=== PATIENT | female | born 1985 | race Caucasian/White ===

== ENCOUNTER 2017-05-03 20:58 | Emergency (ER) | payer BC, MEDICAID ==
[~2017-05-03] VITALS: Ht 160 cm; Wt 58.0 kg
[~2017-05-03 20:58] MED LIST: HYDR-3498 PO; IBUP-1542 PO; MECL-77 PO; ONDA4TAB8 PO; TRAM50TA2 PO
[2017-05-03 21:03] VITALS: Ht 160 cm; Wt 58.0 kg
[2017-05-03] MEDS ORDERED: IBUP400T22 PO (22:19)
--- NOTE | 2017-05-03 22:37 | ERA ---
ER Documentation Chief Complaint Date/Time DATE: 05/03/17 TIME: 22:30 Chief Complaint headache, chest pain since 4 hours ago HPI 32-year-old female presents with a chief complaint of chest pain and left arm numbness. Patient denies fever, cough, diaphoresis, abdominal pain, nausea, sexual activity, shortness of breath, dyspnea on exertion or trauma. Patient has no personal or family medical history. Patient is currently on no medications and denies smoking, alcohol and recreational drug use. Patient's chest pain originally occurred when she was driving in her car. Denies pain related to exertion. Denies history of anxiety or change in ROS All systems reviewed and are negative except as per history of present illness. Medications Home Meds Active Scripts Ibuprofen* (Motrin*) 400 Mg Tab, 400 MG PO Q6H Y for PAIN AND OR ELEVATED TEMP, #30 TAB Prov:ISAK SHELDON PA-C 05/03/17 Meclizine Hcl* (Meclizine Hcl*) 25 Mg Tablet, 25 MG PO Q8H Y for DIZZINESS, #14 TAB Prov:RENEA MICHELLE PA-C 04/17/16 Ondansetron Hcl* (Zofran*) 4 Mg Tablet, 4 MG PO Q6H Y for NAUSEA AND OR VOMITING , #20 TAB Prov:RENEA MICHELLE PA-C 04/17/16 Ibuprofen* (Motrin*) 600 Mg Tab, 600 MG PO Q6, #30 TAB Prov:RENEA MICHELLE PA-C 04/17/16 Tramadol HCl (Tramadol HCl) 50 Mg Tablet, 50 MG PO Q4 Y for PAIN, #20 TAB Prov:BEAN MADRID NP 03/20/16 Ibuprofen* (Motrin*) 600 Mg Tab, 600 MG PO Q6H Y for PAIN AND OR ELEVATED TEMP, #20 Prov:HAN GARCÍA MD 10/16/15 Ondansetron Hcl* (Zofran*) 4 Mg Tablet, 4 MG PO Q6H for NAUSEA AND/OR VOMITING, #14 TAB Prov:HAN GARCÍA MD 10/16/15 Hydrocodone Bit-Acetaminophen* ([place]*) 5-325 Mg Tab, 1 TAB PO Q6 Y for PAIN, # 12 TAB Prov:HAN GARCÍA MD 10/16/15 Allergies Allergies: Coded Allergies: No Known Drug Allergy (Verified Allergy, Mild, 10/16/15) PMhx/Soc History of Surgery: Yes ( x1) Anesthesia Reaction: No Hx Neurological Disorder: No Hx Respiratory Disorders: No Hx Cardiac Disorders: No Hx Psychiatric Problems: No Hx Miscellaneous Medical Probl: No Hx Alcohol Use: No Hx Substance Use: No Hx Tobacco Use: No Smoking Status: Never smoker Physical Exam Vitals Vital Signs Date Time Temp Pulse Resp B/P Pulse Ox O2 Delivery O2 Flow Rate FiO2 05/03/17 21:03 97.7 73 20 153/90 96 Physical Exam Const: Otherwise well-appearing 32-year-old female presenting with boyfriend. Head: Atraumatic Eyes: Normal Conjunctiva ENT: Normal External Ears, Nose and Mouth. Neck: Full range of motion..~ No meningismus. Resp: Clear to auscultation bilaterally Cardio: Regular rate and rhythm, no murmurs. No murmurs with Valsalva or hand director rehabilitation program. Abd: Soft, non tender, non distended. Normal bowel sounds. No suprapubic tenderness. Skin: No petechiae or rashes Back: No midline or flank tenderness Ext: No cyanosis, or edema Neur: Awake and alert Psych: Normal Mood and Affect Procedures/MDM The patient was evaluated and worked up for atypical chest pain as described in the history and physical exam. Patient currently does not have any symptoms and denies any chest pain at this time. The workup included an EKG which was read by my attending physician Dr. Barker who read the EKG is unremarkable. EKG has normal sinus rhythm, no ST abnormalities, good baseline and no T-wave changes. The current most likely diagnosis is atypical chest pain versus costochondritis. This treatment plan will thus include ibuprofen for symptomatic relief and recommendation for outpatient follow-up with primary care provider for further evaluation and possible referral to specialist pe. JEOVANNY score was < 3. Well's criteria less than 3. At this time I do not suspect the chest pain to be due to an acute coronary syndrome, pericarditis, aortic dissection, pulmonary embolism, pneumothorax, esophageal tear/rupture, pneumonia or pancreatitis. I have spoke with the patient regarding their condition and future management. They have verbally responded that they understand their status and treatment plan. The patients vitals are stable, and their current condition is appropriate for discharge. The patient will be given discharge instructions with return precautions. Departure Diagnosis: Primary Impression: Atypical chest pain Additional Impression: Costochondritis, acute Condition: Stable Patient Instructions: Costochondritis Additional Instructions: Follow up with your PCP within the next 1-3 days for a more thorough evaluation and a possible referral to a specialist. Return the the emergency department immediately if symptoms worsen or change. If you have any questions regarding medications, ask your pharmacist or us before you leave. If any adverse reactions occur while taking your medications, discontinue the treatment and return to the emergency department immediately. Take your medications as directed, and complete the entire course of treatment. ISAK SHELDON PA-C May 03, 2017 22:37
== END 2017-05-03 22:36 | disposition home or self-care (01) ==
LOC: FTE 20:58
DX: R07.89 Other chest pain (principal); M94.0 Chondrocostal junction syndrome [Tietze]
CPT/HCPCS: 93005

== ENCOUNTER 2019-07-19 23:45 | Inpatient (IN) | payer BC, MEDICAID ==
[~2019-07-19] VITALS: Ht 157.5 cm; Wt 58.3 kg
[~2019-07-19 23:45] MED LIST changes: +ACET325T33 PO; +CEPH500C PO; +DOCU-144 PO; +HYDR-3609 PO; +HYDR-4011 PO; +IBUP-1561 PO; +POLY17PO6 PO
[2019-07-19 23:46] VITALS: Ht 157.5 cm; Wt 58.3 kg
[2019-07-20] MEDS ORDERED: ONDANSETRON 4 MG INJ IV STA (00:43)
[2019-07-20] MEDS ORDERED: morphine 4 MG/ML VIAL IV STA (00:43)
[2019-07-20] MEDS ORDERED: SOD CHLORIDE 0.9% 1,000 ML IV ONE (01:00)
[2019-07-20] MEDS ORDERED: SOD CHLORIDE 0.9% 100 ML ONE (01:32)
[2019-07-20] MEDS ORDERED: IOHEXOL 300MG/ML 150 ML BTL ONE (01:32)
[2019-07-20] MEDS ORDERED: SOD CHLORIDE 0.9% 1,000 ML IV SCH (02:30)
[2019-07-20] MEDS ORDERED: PIPER-TAZO 3.375 GM IV (PMX) 100 ML IVPB ONE (02:30)
[2019-07-20] MEDS: SOD CHLORIDE 0.9% 1,000 ML IV SCH ×2 (02:51→19:10)
[2019-07-20] MEDS ORDERED: HYDROmorphONE 0.5 MG/0.5 ML SYG IV PRN (03:00)
[2019-07-20] MEDS ORDERED: BISACODYL (EC) 5 MG TAB PO PRN (03:00)
[2019-07-20] MEDS ORDERED: ONDANSETRON 4 MG INJ IV PRN (03:00)
[2019-07-20] MEDS ORDERED: NACL 0.9% 3 ML SYG IV SCH (03:00)
[2019-07-20] MEDS ORDERED: ACETAMINOPHEN 325 MG TAB PO PRN (03:00)
[2019-07-20] MEDS ORDERED: DOCUSATE SODIUM 100 MG CAP PO PRN (03:00)
[2019-07-20 07:48] VITALS: BP 129/83; PULSE 64; RESP 18; RESP 64
[2019-07-20] MEDS: PIPER-TAZO 3.375 GM IV (PMX) 100 ML IVPB SCH ×3 (09:46→21:13)
[2019-07-20 14:26] VITALS: BP 108/73; PULSE 60; RESP 18
[2019-07-20 20:10] VITALS: BP 128/83; PULSE 62; RESP 17
[2019-07-21] VITALS (30 sets, daily range): BP systolic 102–144; BP diastolic 66–89; PULSE 60–85; RESP 16–27
[2019-07-21] MEDS: PIPER-TAZO 3.375 GM IV (PMX) 100 ML IVPB SCH ×4 (03:21→21:52)
[2019-07-21] MEDS: SOD CHLORIDE 0.9% 1,000 ML IV SCH ×3 (07:27→19:46)
[2019-07-21] MEDS ORDERED: BUPIVACAINE 0.25%/EPI (SDV) 10 ML INJ ONE (15:19)
[2019-07-21] MEDS ORDERED: SEVOFLURANE 15 MIN ONE (16:30)
[2019-07-21] MEDS ORDERED: MIDAZOLAM 1 MG/ML 2 ML INJ ONE (16:37)
[2019-07-21] MEDS ORDERED: ROPIVACAINE 0.5 % 30 ML VIAL ONE (17:08)
[2019-07-21] MEDS ORDERED: LIDOCAINE 2% (SDV) 5 ML INJ ONE (17:08)
[2019-07-21] MEDS ORDERED: GLYCOPYRROLATE 0.4 MG INJ ONE ×2 (17:08→17:25)
[2019-07-21] MEDS ORDERED: PROPOFOL 20 ML ONE (17:08)
[2019-07-21] MEDS ORDERED: NEOSTIGMINE 3 MG/3 ML SYRINGE ONE ×2 (17:08→17:25)
[2019-07-21] MEDS ORDERED: ROCURONIUM 50 MG INJ ONE (17:08)
[2019-07-21] MEDS ORDERED: ONDANSETRON 4 MG INJ ONE (17:25)
[2019-07-21] MEDS ORDERED: OXYCODONE/ACETAMINOPHEN (5/325) TAB PO PRN (17:30)
[2019-07-21] MEDS ORDERED: morphine 2 MG INJ IV PRN (17:30)
[2019-07-21] MEDS ORDERED: ONDANSETRON 4 MG INJ IV PRN ×2 (17:30→18:00)
[2019-07-21] MEDS ORDERED: SUGAMMADEX SODIUM 200 MG/2 ML VIAL IV ONE (17:41)
[2019-07-21] MEDS ORDERED: METOCLOPRAMIDE 10 MG INJ IV PRN (18:00)
[2019-07-21] MEDS ORDERED: HYDROmorphONE 1 MG/5 ML IV SYRINGE IV PRN ×2 (18:00)
[2019-07-21] MEDS ORDERED: MEPERIDINE 25 MG INJ IV PRN (18:00)
[2019-07-21] MEDS ORDERED: KETOROLAC 30 MG INJ IV PRN (18:00)
[2019-07-21] MEDS ORDERED: DIPHENHYDRAMINE 50 MG INJ IV PRN (18:00)
[2019-07-21] MEDS ORDERED: FENTAnyl 50 MCG/ML VIAL IV PRN (18:00)
[2019-07-22 00:25] VITALS: BP 125/78; PULSE 73; RESP 18
[2019-07-22] MEDS: OXYCODONE/ACETAMINOPHEN (5/325) TAB PO PRN ×2 (01:30→07:37)
[2019-07-22] MEDS: PIPER-TAZO 3.375 GM IV (PMX) 100 ML IVPB SCH (03:27)
[2019-07-22 04:35] VITALS: BP 131/80; PULSE 71; RESP 18
[2019-07-22 07:27] VITALS: BP 148/88; PULSE 51; RESP 16
[2019-07-22] MEDS: HYDROCODONE/APAP (10/325) TAB PO PRN ×3 (13:02→23:08)
[2019-07-22 14:59] VITALS: BP 137/79; PULSE 64; RESP 18
[2019-07-22 19:45] VITALS: BP 140/86; PULSE 60; RESP 18
[2019-07-22] MEDS: CEPHALEXIN 500 MG CAP PO SCH (21:43)
[2019-07-23 02:54] VITALS: BP 103/62; PULSE 60; RESP 18
[2019-07-23] MEDS: HYDROCODONE/APAP (10/325) TAB PO PRN ×2 (06:50→13:24)
[2019-07-23 07:36] VITALS: BP 106/77; PULSE 73; RESP 18
[2019-07-23] MEDS: CEPHALEXIN 500 MG CAP PO SCH (09:01)
[2019-07-23 15:38] VITALS: BP 115/76; PULSE 65; RESP 18
== END 2019-07-23 18:20 | disposition home or self-care (01) | DRG 419 ==
LOC: FTE 23:45 → MS1 07-20 02:46
PROVIDERS: ADMIT Family Medicine; ATTEND Internal Medicine
PROC: 0FT44ZZ Resection of Gallbladder, Percutaneous Endoscopic Approach (ICD-10-PCS; principal; 2019-07-21 16:30)
DX: K80.12 Calculus of gallbladder with acute and chronic cholecystitis without obstruction (principal); I10 Essential (primary) hypertension; D50.9 Iron deficiency anemia, unspecified
CPT/HCPCS: 36415; 74177; 76705; 78226; 80048; 80053; 81001; 81003; 81025; 82150; 82728; 83540; 83690; 83735; 84100; 85025; 85610; 85730; 87086; 88304; 96374; 96375; A9537; J1170; J2250; J2270; J2405; J2543; J2710; J2795; J3010; J7030; Q9967

== ENCOUNTER 2019-07-25 02:51 | Emergency (ER) | payer BC ==
[~2019-07-25] VITALS: Ht 149.9 cm; Wt 62.0 kg
[~2019-07-25 02:51] MED LIST changes: -HYDR-3498 PO; -IBUP-1542 PO; -IBUP-1561 PO; -MECL-77 PO; -ONDA4TAB8 PO; -TRAM50TA2 PO
[2019-07-25 02:52] VITALS: Ht 149.9 cm; Wt 62.0 kg
[2019-07-25] MEDS ORDERED: SOD CHLORIDE 0.9% 1,000 ML IV STA (04:17)
[2019-07-25] MEDS ORDERED: morphine 2 MG INJ IV STA (04:17)
[2019-07-25] MEDS ORDERED: ONDANSETRON 4 MG INJ IV STA (04:17)
[2019-07-25] MEDS ORDERED: ACETAMINOPHEN 325 MG TAB PO ONE (04:30)
[2019-07-25] MEDS ORDERED: SOD CHLORIDE 0.9% 100 ML ONE (05:29)
[2019-07-25] MEDS ORDERED: IOHEXOL 300MG/ML 150 ML BTL ONE (05:29)
[2019-07-25 08:30] VITALS: BP 114/81; PULSE 80; RESP 20
== END 2019-07-25 08:35 | disposition home or self-care (01) ==
LOC: E/R 02:51
DX: G89.18 Other acute postprocedural pain (principal); D64.9 Anemia, unspecified; R10.9 Unspecified abdominal pain
CPT/HCPCS: 36415; 51702; 71045; 74177; 80053; 81003; 81025; 83690; 85025; 96361; 96374; 96375; 99285; J2270; J2405; J7030; Q9967